=== PATIENT | female | born 1985 | race Caucasian/White ===

== ENCOUNTER 2019-01-12 15:49 | Outpatient (CLI) | payer OTHER ==
[~2019-01-12] VITALS: Ht 162.6 cm; Wt 95.0 kg
[2019-01-12 16:05] VITALS: BP 141/82
[2019-01-16] MEDS ORDERED: DOCU-131 PO (12:54)
[2019-01-16] MEDS ORDERED: IBUP-1222 PO (12:55)
[2019-01-16] MEDS ORDERED: OXYC-302 PO (12:57)
[2019-01-16] MEDS ORDERED: FERR240T PO (13:01)
== END 2019-01-12 18:00 | disposition home or self-care (01) ==
LOC: LDOP 15:49
PROVIDERS: ATTEND Obstetrics & Gynecology
DX: O42.92 Full-term premature rupture of membranes, unspecified as to length of time between rupture and onset of labor (principal); Z3A.38 38 weeks gestation of pregnancy
CPT/HCPCS: 59025; 76815; 84112; 89060; 99201; 99211; G0463; Q0114